=== PATIENT | male | born 1955 | race Caucasian/White ===

== ENCOUNTER 2022-12-23 07:52 | Day surgery (SDC) | payer MEDICARE, BC ==
[2022-12-23] MEDS ORDERED: Sodium Chloride 0.9% 10 ML Syringe FLUSH PRN (08:00)
[2022-12-23] MEDS ORDERED: Lactated Ringers 1,000 ML IV SCH (08:00)
[2022-12-23] MEDS ORDERED: Propofol 200 MG/20 ML SDV ONE (08:51)
[2022-12-23] MEDS ORDERED: Midazolam 1 MG/ML 2 ML SDV ONE (08:51)
[2022-12-23 10:52] VITALS: BP 138/90; PULSE 70
== END 2022-12-23 11:10 | disposition home or self-care (01) ==
LOC: KA.SDS 07:52
PROVIDERS: ATTEND Surgery
DX: Z12.11 Encounter for screening for malignant neoplasm of colon (principal); D12.2 Benign neoplasm of ascending colon; K57.30 Diverticulosis of large intestine without perforation or abscess without bleeding; K64.8 Other hemorrhoids; N28.9 Disorder of kidney and ureter, unspecified; I10 Essential (primary) hypertension; K21.9 Gastro-esophageal reflux disease without esophagitis; E05.00 Thyrotoxicosis with diffuse goiter without thyrotoxic crisis or storm; Z86.010 Personal history of colon polyps; Z79.899 Other long term (current) drug therapy; Z79.890 Hormone replacement therapy; Z98.890 Other specified postprocedural states
CPT/HCPCS: 00812; J2250; J2704; J7120

== ENCOUNTER 2024-04-08 14:10 | Emergency (ER) | payer MEDICARE, BC ==
[2024-04-08] MEDS: Acetaminophen 500 MG Tab PO ONE (15:20)
[2024-04-08 18:47] VITALS: BP 147/95; PULSE 66
== END 2024-04-08 16:10 | disposition home or self-care (01) ==
LOC: KA.ED 14:27
DX: S99.912A Unspecified injury of left ankle, initial encounter (principal); I10 Essential (primary) hypertension; Z79.890 Hormone replacement therapy; Z79.899 Other long term (current) drug therapy; W17.89XA Other fall from one level to another, initial encounter
CPT/HCPCS: 73610-LT; 99283; A9270-GY

== ENCOUNTER 2024-05-14 16:00 | Emergency (ER) | payer MEDICARE, BC ==
[2024-05-14 16:47] LABS: BASOPHILS ABSOLUTE AUTO 0.03 10^3/uL (0.00-0.10); BASOPHILS PERCENT AUTO 0.4 % (0.0-1.0); EOSINOPHILS ABSOLUTE AUTO 0.33 10^3/uL (0.10-0.30); EOSINOPHILS PERCENT AUTO 4.2 % (1.0-3.0); HEMATOCRIT 40.3 % (40.0-52.0); HEMOGLOBIN 13.6 g/dL (13.0-17.0); IMMATURE GRAN ABSOLUTE AUTO 0.01 10^3/uL (0.00-0.50); IMMATURE GRAN PERCENT AUTO 0.1 % (0.0-5.0); LYMPHOCYTES ABSOLUTE AUTO 0.85 10^3/uL (1.00-4.00); LYMPHOCYTES PERCENT AUTO 10.9 % (20.0-40.0); MEAN CORPUSCULAR HEMOGLOBIN 30.7 pg (27.0-31.0); MEAN CORPUSCULAR HGB CONC 33.7 g/dL (32.0-36.0); MEAN PLATELET VOLUME 8.5 fL (7.4-10.4); MONOCYTES ABSOLUTE AUTO 0.58 10^3/uL (0.10-0.80); MONOCYTES PERCENT AUTO 7.4 % (2.0-8.0); PLATELET COUNT,PLT 260 10^3/uL (150-400); RED BLOOD CELL COUNT 4.43 10^6/uL (4.50-6.00); RED CELL DISTRIBUTION WIDTH 13.2 % (11.5-14.5)
[2024-05-14] MEDS: Sodium Chloride 0.9% 1,000 ML IV ONE (16:47)
[2024-05-14 16:59] LABS: ALBUMIN 3.38 g/dL (3.40-5.00); ANION GAP 16.4 mmol/L (5-15); BILIRUBIN TOTAL 0.6 mg/dL (0.2-1.0); CALCIUM 8.8 mg/dL (8.7-10.3); CARBON DIOXIDE,CO2 23.7 mmol/L (21.0-32.0); CREATININE 1.22 mg/dL (0.51-1.17); EST CRCL DRUG DOSING (CG) 54.51 mL/min; POTASSIUM,K 4.1 mmol/L (3.5-5.1); PROTEIN TOTAL,TP 6.4 g/dL (6.4-8.2)
[2024-05-14] MEDS: Ondansetron 4 MG/2 ML SDV IVPUSH ONE (17:16)
[2024-05-14] MEDS: Ondansetron 4 MG/2 ML SDV ONE (17:17)
[2024-05-14 19:07] VITALS: BP 123/80; PULSE 67
== END 2024-05-14 19:04 | disposition home or self-care (01) ==
LOC: KA.ED 16:00
DX: E86.0 Dehydration (principal); I10 Essential (primary) hypertension; Z79.890 Hormone replacement therapy; Z79.899 Other long term (current) drug therapy
CPT/HCPCS: 36415; 80053; 84484; 85025; 93010; 96361; 96374; 99284; 99284-25; J2405; J7030

== ENCOUNTER 2024-11-10 12:02 | Emergency (ER) | payer MEDICARE, BC ==
[2024-11-10] MEDS ORDERED: Sodium Chloride 0.9% 10 ML Syringe FLUSH PRN (12:26)
[2024-11-10 12:37] LABS: BASOPHILS ABSOLUTE AUTO 0.02 10^3/uL (0.00-0.10); BASOPHILS PERCENT AUTO 0.4 % (0.0-1.0); EOSINOPHILS ABSOLUTE AUTO 0.41 10^3/uL (0.10-0.30); EOSINOPHILS PERCENT AUTO 7.4 % (1.0-3.0); HEMATOCRIT 43.8 % (40.0-52.0); HEMOGLOBIN 14.4 g/dL (13.0-17.0); IMMATURE GRAN ABSOLUTE AUTO 0.01 10^3/uL (0.00-0.04); IMMATURE GRAN PERCENT AUTO 0.2 % (0.0-0.4); LYMPHOCYTES ABSOLUTE AUTO 1.24 10^3/uL (1.00-4.00); LYMPHOCYTES PERCENT AUTO 22.3 % (20.0-40.0); MEAN CORPUSCULAR HEMOGLOBIN 30.4 pg (27.0-31.0); MEAN CORPUSCULAR HGB CONC 32.9 g/dL (32.0-36.0); MEAN CORPUSCULAR VOLUME 92.6 fL (82.0-92.0); MEAN PLATELET VOLUME 8.8 fL (7.4-10.4); MONOCYTES ABSOLUTE AUTO 0.43 10^3/uL (0.10-0.80); MONOCYTES PERCENT AUTO 7.7 % (2.0-8.0); NEUTROPHILS ABSOLUTE AUTO 3.46 10^3/uL (2.50-7.00); PLATELET COUNT,PLT 219 10^3/uL (150-400); RED BLOOD CELL COUNT 4.73 10^6/uL (4.50-6.00); WHITE BLOOD CELL COUNT,WBC 5.57 10^3/uL (5.00-10.00)
[2024-11-10] MEDS: Aspirin 81 MG Tab.Chew PO ONE (12:49)
[2024-11-10] MEDS ORDERED: Nitroglycerin 0.4 MG Tab.SL SL PRN (12:54)
[2024-11-10 12:55] LABS: ALBUMIN 3.59 g/dL (3.40-5.00); ANION GAP 10.8 mmol/L (5-15); BILIRUBIN TOTAL 0.7 mg/dL (0.2-1.0); CALCIUM 8.8 mg/dL (8.7-10.3); CARBON DIOXIDE,CO2 30.4 mmol/L (21.0-32.0); CREATININE 1.18 mg/dL (0.51-1.17); POTASSIUM,K 4.2 mmol/L (3.5-5.1); PROTEIN TOTAL,TP 6.4 g/dL (6.4-8.2)
[2024-11-10] MEDS: Nitroglycerin 0.4 MG Tab.SL SL PRN (12:55)
[2024-11-10] MEDS: Nitroglycerin 0.4 MG Tab.SL ONE (12:55)
[2024-11-10 13:42] VITALS: BP 100/65; PULSE 65
== END 2024-11-10 13:50 | disposition home or self-care (01) ==
LOC: KA.ED 12:02
DX: I20.9 Angina pectoris, unspecified (principal); I10 Essential (primary) hypertension; Z79.890 Hormone replacement therapy; Z79.82 Long term (current) use of aspirin; Z79.899 Other long term (current) drug therapy
CPT/HCPCS: 71045; 80053; 84484; 85025; 93005; 99285; A9270; 93010; 99284

== ENCOUNTER 2025-07-04 18:15 | Emergency (ER) | payer MEDICARE, BC ==
[2025-07-04 20:18] VITALS: BP 135/90
[2025-07-04 23:20] VITALS: PULSE 70
== END 2025-07-04 22:00 | disposition home or self-care (01) ==
LOC: KA.ED 18:15
DX: S52.135A Nondisplaced fracture of neck of left radius, initial encounter for closed fracture (principal); I10 Essential (primary) hypertension; Z79.82 Long term (current) use of aspirin; Z79.890 Hormone replacement therapy; Z79.899 Other long term (current) drug therapy; W11.XXXA Fall on and from ladder, initial encounter
CPT/HCPCS: 29105; 71101-LT; 73080-LT; 99283-25